=== PATIENT | male | born 1965 | race Caucasian/White ===

== ENCOUNTER 2019-09-09 18:51 | Inpatient (IN) | payer MEDICAID ==
[~2019-09-09] VITALS: Ht 177.8 cm; Wt 82.4 kg
[~2019-09-09 18:51] MED LIST: ASPI81TA45 PO; CARV3.1212 PO; CLOP75TA PO; LISI5TAB7 PO; SIMV40TA3 PO; TICA90TA PO
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
[2019-09-09] MEDS ORDERED: ASPIRIN 81 MG TABLET CHEW ONE (19:43)
[2019-09-09] MEDS ORDERED: ONDANSETRON 2MG/ML, 2ML ONE (19:43)
[2019-09-09] MEDS ORDERED: MORPHINE SULFATE 4 MG/ML, 1ML ONE (19:43)
[2019-09-09] MEDS: MORPHINE SULFATE 4 MG/ML, 1ML IVPush PRN ×2 (19:52→19:53)
[2019-09-09] MEDS ORDERED: ASPIRIN 81 MG TABLET CHEW PO ONE (20:00)
[2019-09-09] MEDS ORDERED: ONDANSETRON 2MG/ML, 2ML IVPush ONE (20:00)
[2019-09-09 20:41] LABS: BASOPHILS # (AUTO) 0.01 x10^3/uL (0-0.1); BASOPHILS % (AUTO) 0 % (0-1); EOSINOPHILS # (AUTO) 0.04 x10^3/uL (0-0.4); EOSINOPHILS % (AUTO) 0 % (1-7); LYMPHOCYTES # (AUTO) 0.41 x10^3/uL (1-3.4); LYMPHOCYTES % (AUTO) 5 % (22-44); MD NO; MEAN CORPUSCULAR HGB CONC 32.6 g/dL (33.2-36.2); MEAN CORPUSCULAR VOLUME 95.1 fL (81-97); MEAN PLATELET VOLUME 8.8 fL (7.4-10.4); MONOCYTES # (AUTO) 0.45 x10^3/uL (0.2-0.8); MONOCYTES % (AUTO) 5 % (2-9); NEUTROPHILS # (AUTO) 8.03 x10^3/uL (1.8-6.8); NEUTROPHILS % (AUTO) 90 % (42-75); PLATELET COUNT 239 x10^3/uL (130-400); RED BLOOD COUNT 5.41 x10^6/uL (4.38-5.82); RED CELL DISTRIBUTION WIDTH 13.7 % (9.4-14.8)
[2019-09-09 20:50] LABS: ALANINE AMINOTRANSFERASE 37 U/L (12-78); ALBUMIN 3.5 g/dL (3.4-5.0); ANION GAP 4 mmol/L (5-15); CALCIUM 8.8 mg/dL (8.5-10.1); CHLORIDE 106 mmol/L (98-107)
[2019-09-09] MEDS ORDERED: HYDROmorphone 1 MG/ML, 1ML VIAL ONE (20:50)
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
[2019-09-09 20:55] LABS: ALKALINE PHOSPHATASE 87 U/L (45-117); BILIRUBIN,TOTAL 0.7 mg/dL (0.2-1.0); TOTAL PROTEIN 7.3 g/dL (6.4-8.2); TROPONIN I < 0.015 ng/mL (0.000-0.045)
[2019-09-09] MEDS ORDERED: PANTOPRAZOLE 40 MG IV ONE (20:59)
[2019-09-09] MEDS ORDERED: PANTOPRAZOLE 40 MG IV IVPush SCH ×2 (21:00→22:30)
[2019-09-09] MEDS ORDERED: FAMOTIDINE 20 MG/2 ML IVPush ONE (21:00)
[2019-09-09] MEDS ORDERED: HYDROmorphone 1 MG/ML, 1ML INJ IV ONE (21:00)
[2019-09-09] MEDS ORDERED: HYDROmorphone 2 MG/ML, 1ML IVPush PRN (21:00)
[2019-09-09] MEDS ORDERED: FAMOTIDINE 20 MG/2 ML ONE (21:00)
--- NOTE | 2019-09-09 21:05 | NUR ---
PT ASLEEP. NAD NOTED AT THIS TIME. RESPIRATIONS EVEN AND UNLABORED ON RA. SIDE RAILS UP, CALL LIGHT IN REACH.
[2019-09-09] MEDS ORDERED: CLOP75TA52 PO (21:54)
[2019-09-09] MEDS ORDERED: ATOR-2 PO (21:54)
[2019-09-09] MEDS ORDERED: METO25TA35 PO (21:54)
--- NOTE | 2019-09-09 22:00 | NUR ---
PT REPORTS SOME RELIEF FROM PAIN, BUT STILL RATES PAIN 7/10. LAYING IN BED ON SIDE RESTING WITH EYES CLOSED. SIDE RAIL UP, CALL LIGHT IN REACH. AWAITING RECHECK.
[2019-09-09] MEDS ORDERED: HYDROmorphone 1 MG/ML, 1ML INJ IV PRN (22:30)
[2019-09-09] MEDS ORDERED: ONDANSETRON 2MG/ML, 2ML IVPush PRN (22:30)
[2019-09-09] MEDS ORDERED: morphine SULFATE 10 MG/ML, 1ML IVPush PRN (22:30)
--- NOTE | 2019-09-09 22:41 | NUR ---
PT REFUSES NG AT THIS TIME. PT EDUCATED ON NEED FOR NG AND RELIEF WITH NG. WILL RETURN IN 5 MIN. PT SITTING UP IN BED, TALKING WITH , UPSET ABOUT NG PLAN.
--- NOTE | 2019-09-09 23:00 | NUR ---
PT BEGAN VOMITING WITH NG START, PULLS AWAY FROM RN AND TUBING AND VOMITS INTO BAG.
--- NOTE | 2019-09-09 23:16 | NUR ---
PT VOMITING WITH NG ATTEMPT, PULLS AWAY NG TUBE.
--- NOTE | 2019-09-09 23:32 | NUR ---
THIRD ATTEMPT FOR NG TUBE, PT BEGAN VOMITING AGAIN AND PULLS NG TUBE OUT. FLOOR RN AWARE.
[2019-09-09 23:45] VITALS: BP 111/73
[2019-09-09] MEDS ORDERED: OMNIPAQUE 350 MG/ML, 100ML BOTTLE ONE (23:47)
[2019-09-10] MEDS: SODIUM CHLORIDE 0.9% 1,000 ML IV SCH ×3 (00:43→21:41)
[2019-09-10 02:41] VITALS: BP 114/70
[2019-09-10 06:01] LABS: ANION GAP 3 mmol/L (5-15); CALCIUM 7.9 mg/dL (8.5-10.1); CHLORIDE 105 mmol/L (98-107); CREATININE 0.88 mg/dL (0.7-1.3)
[2019-09-10 06:02] LABS: BASOPHILS # (AUTO) 0.02 x10^3/uL (0-0.1); BASOPHILS % (AUTO) 0 % (0-1); EOSINOPHILS # (AUTO) 0.09 x10^3/uL (0-0.4); EOSINOPHILS % (AUTO) 1 % (1-7); LYMPHOCYTES # (AUTO) 0.95 x10^3/uL (1-3.4); LYMPHOCYTES % (AUTO) 13 % (22-44); MD NO; MEAN CORPUSCULAR HEMOGLOBIN 31.6 pg (27.5-34.5); MEAN CORPUSCULAR HGB CONC 33.4 g/dL (33.2-36.2); MEAN CORPUSCULAR VOLUME 94.8 fL (81-97); MEAN PLATELET VOLUME 8.2 fL (7.4-10.4); MONOCYTES # (AUTO) 0.56 x10^3/uL (0.2-0.8); MONOCYTES % (AUTO) 8 % (2-9); NEUTROPHILS # (AUTO) 5.65 x10^3/uL (1.8-6.8); NEUTROPHILS % (AUTO) 78 % (42-75); PLATELET COUNT 210 x10^3/uL (130-400); RED CELL DISTRIBUTION WIDTH 13.9 % (9.4-14.8)
[2019-09-10] MEDS: PANTOPRAZOLE 40 MG IV IVPush SCH ×2 (08:29→21:38)
[2019-09-10 08:58] VITALS: BP 111/67
[2019-09-10] MEDS ORDERED: CLOPIDOGREL 75 MG TABLET PO SCH (09:00)
[2019-09-10] MEDS ORDERED: LISINOPRIL 5 MG TABLET PO SCH (09:00)
[2019-09-10] MEDS ORDERED: FENTANYL PF 100 MCG/2ML ONE (09:48)
[2019-09-10] MEDS ORDERED: PROPOFOL 10 MG/ML, 20ML ONE (09:52)
[2019-09-10] MEDS ORDERED: ACETAMINOPHEN 325 MG TABLET PO PRN ×2 (10:00→18:30)
[2019-09-10] MEDS ORDERED: PROMETHAZINE 25 MG/ML, 1ML IV PRN (10:00)
[2019-09-10] MEDS ORDERED: FENTANYL PF 100 MCG/2ML IV PRN (10:00)
[2019-09-10] MEDS ORDERED: ONDANSETRON ODT 8 MG PO PRN (10:00)
[2019-09-10] MEDS ORDERED: OXYcodone 5 MG/5 ML ORAL.SOL UDC PO PRN (10:00)
[2019-09-10] MEDS ORDERED: hydrALAzine 20 MG/ML, 1ML IV PRN (10:00)
[2019-09-10] MEDS ORDERED: LABETALOL 5MG/ML, 20ML IV PRN (10:00)
[2019-09-10] MEDS ORDERED: ONDANSETRON 2MG/ML, 2ML IV PRN (10:00)
[2019-09-10] MEDS ORDERED: HYDROmorphone 2 MG/ML, 1ML IVPush PRN (10:00)
[2019-09-10 12:25] VITALS: BP 123/82
[2019-09-10] MEDS ORDERED: POTASSIUM CHLORIDE 20 MEQ in SODIUM CHLORIDE 0.9% 250 ML IV ONE (17:00)
[2019-09-10 18:12] VITALS: BP 119/75
[2019-09-10 18:44] VITALS: BP 116/75
[2019-09-10 19:58] LABS: HCT (SEDRATE) 45.8 % (39.2-51.8)
[2019-09-10] MEDS ORDERED: ATORVASTATIN 80 MG TABLET PO SCH (21:00)
[2019-09-11 01:37] VITALS: BP 114/79
== END 2019-09-11 02:32 | disposition left against medical advice (07) | DRG 381 ==
LOC: ED 21:09 → EDIP 21:54 → 3N 23:42
PROVIDERS: ADMIT Internal Medicine; ATTEND Internal Medicine
PROC: 0DB38ZX Excision of Lower Esophagus, Via Natural or Artificial Opening Endoscopic, Diagnostic (ICD-10-PCS; principal; 2019-09-10 10:00)
DX: K31.1 Adult hypertrophic pyloric stenosis (principal); J98.11 Atelectasis; K56.609 Unspecified intestinal obstruction, unspecified as to partial versus complete obstruction; F12.90 Cannabis use, unspecified, uncomplicated; F17.210 Nicotine dependence, cigarettes, uncomplicated; I25.10 Atherosclerotic heart disease of native coronary artery without angina pectoris; I25.2 Old myocardial infarction; K22.8 Other specified diseases of esophagus; K44.9 Diaphragmatic hernia without obstruction or gangrene; K76.89 Other specified diseases of liver; M51.37 Other intervertebral disc degeneration, lumbosacral region; Z79.02 Long term (current) use of antithrombotics/antiplatelets; Z95.5 Presence of coronary angioplasty implant and graft
CPT/HCPCS: 36415; 74245; 84145; 96374; 99285; J3490; 71045; 74177; 80048; 80053; 83690; 83880; 84443; 84484; 85025; 85379; 85651; 87040; 88305; 93005; G0378; J1170; J2405; J2704; J3010; J3480; Q9967; C9113; J2270; J7030; J7050

== ENCOUNTER 2020-10-05 09:14 | Emergency (ER) | payer MEDICAID ==
[~2020-10-05] VITALS: Ht 177.8 cm; Wt 75.0 kg
[~2020-10-05 09:14] MED LIST changes: +ATOR-2 PO; +CLOP75TA52 PO; +METO25TA35 PO; +SIMV40TA20 PO; -SIMV40TA3 PO
--- NOTE | 2020-10-05 09:49 | NUR ---
ASSUMED CARE OF PT, PROVIDER AT BEDSIDE PT IS COMPLAINING OF LOW BACK PAIN X 5 DAYS AND "NOT FEELING GOOD" AND NEEDS COVID TEST FOR WORK. PT IS RESTING COMFORTABLY IN BED. NO FAMILY AT BEDSIDE. CYCLING VITALS AND CALL LIGHT WITHIN REACH. PATIENT IS NOT COUGHING AND DENIES ANY SOB.
[2020-10-05 10:20] VITALS: BP 103/69
== END 2020-10-05 10:22 | disposition home or self-care (01) ==
LOC: ED 10:00
DX: U07.1 COVID-19 (principal); S39.012A Strain of muscle, fascia and tendon of lower back, initial encounter; I25.2 Old myocardial infarction; F17.210 Nicotine dependence, cigarettes, uncomplicated; X58.XXXA Exposure to other specified factors, initial encounter; Y93.89 Activity, other specified; Y92.89 Other specified places as the place of occurrence of the external cause; Y99.8 Other external cause status
CPT/HCPCS: 87635; 99283